=== PATIENT | female | born 1970 ===

== ENCOUNTER 2016-08-27 22:23 | Emergency (ER) | payer SELFPAY ==
[2016-08-27 22:31] VITALS: BP 118/77; PULSE 66; RESP 16; TEMP 97.9; O2SAT 100
--- NOTE | 2016-08-28 00:14 | ED PDOC ---
Upper Extremity Pain/Injury Time Seen by Provider: 08/27/16 23:30 Chief Complaint (Nursing): Finger,Hand,&Wrist Chief Complaint (Provider): Hand pain History Per: Patient Additional Complaint(s): PT. C/O PAIN TO BOTH AHNDS X 1 WEEK. PT. DENIES TRAUMA. Past Medical History Vital Signs: Last Vital Signs Temp 97.9 F 08/27/16 22:27 Pulse 66 08/27/16 22:27 Resp 16 08/27/16 22:27 BP 118/77 08/27/16 22:27 Pulse Ox 100 08/27/16 22:27 - Medical History PMH: HTN - Allergies Allergies/Adverse Reactions: Allergies Allergy/AdvReac Type Severity Reaction Status Date / Time No Known Allergies Allergy Verified 08/28/16 00:13 - ECG O2 Sat by Pulse Oximetry: 100
--- NOTE | 2016-08-28 17:37 | RAD ---
PROCEDURE: Bilateral hands dated 08/28/2016. HISTORY: pain COMPARISON: No prior study available comparison TECHNIQUE: 3 standard views of the right and left hands performed FINDINGS: Current study reveals no evidence of acute displaced fracture nor dislocation. No cortical destructive changes. The osseous structures appear intact. There are no periarticular erosive changes or punched-out lesions Joint spaces preserved without significant osteoarthritis. . Soft tissues appear grossly unremarkable. No radiopaque foreign bodies. IMPRESSION: No acute displaced fracture nor dislocation. No significant osteoarthritis.
== END 2016-08-28 02:04 | disposition home or self-care (01) ==
LOC: H.ER 22:23
DX: M79.631 Pain in right forearm (principal); M79.632 Pain in left forearm

== ENCOUNTER 2016-12-30 18:51 | Emergency (ER) | payer SELFPAY ==
[2016-12-30 18:59] VITALS: BP 143/64; PULSE 97; RESP 20; O2SAT 97
[2016-12-30] MEDS ORDERED: Amoxicillin-Clav 875-125 mg Tab PO STA (19:06)
--- NOTE | 2016-12-30 19:07 | ED PDOC ---
HPI: CCC, URI, Sore Throat Time Seen by Provider: 12/30/16 18:58 Chief Complaint (Nursing): Fever Chief Complaint (Provider): fever, sore throat History Per: Patient Additional Complaint(s): 46-year-old female presents to emergency department with fever and sore throat for 4 days. No associated cough. Motrin has helped the pain. No motrin taken today. Patient is tolerating liquids and solids. Denies recent travel or known sick contacts. Past Medical History Reviewed: Historical Data, Nursing Documentation, Vital Signs Vital Signs: Last Vital Signs Temp 100.6 F H 12/30/16 18:57 Pulse 97 H 12/30/16 18:57 Resp 20 12/30/16 18:57 BP 143/64 12/30/16 18:57 Pulse Ox 97 12/30/16 19:07 - Medical History PMH: HTN - Surgical History Surgical History: (x 1) Other surgeries: colon resection - Family History Family History: States: No Known Family Hx - Living Arrangements Living Arrangements: With Family - Social History Current smoker - smoking cessation education provided: No Alcohol: None Drugs: Denies - Home Medications Home Medications: Ambulatory Orders Medication Instructions Recorded Ibuprofen [Motrin] 600 mg PO Q6 #20 tab 08/28/16 Amoxicillin/Clavulanate [Augmentin 1 tab PO BID #14 tab 12/30/16 875 MG-125 MG] - Allergies Allergies/Adverse Reactions: Allergies Allergy/AdvReac Type Severity Reaction Status Date / Time No Known Allergies Allergy Verified 08/28/16 00:13 Review of Systems ROS Statement: Except As Marked, All Systems Reviewed And Found Negative Constitutional: Positive for: Fever. Negative for: Chills, Weakness ENT: Positive for: Throat Pain Respiratory: Negative for: Cough Gastrointestinal: Negative for: Nausea, Vomiting Neurological: Negative for: Headache, Dizziness Physical Exam - Reviewed Nursing Documentation Reviewed: Yes Vital Signs Reviewed: Yes - Physical Exam Appears: Positive for: Well, Non-toxic, No Acute Distress Skin: Negative for: Rash Eye Exam: Positive for: Normal appearance, EOMI, PERRL ENT: Positive for: TM Is/Are (normal bilaterally), Pharyngeal Erythema, Tonsillar Exudate, Tonsillar Swelling. Negative for: Nasal Congestion Cardiovascular/Chest: Positive for: Regular Rate, Rhythm Respiratory: Positive for: Normal Breath Sounds. Negative for: Wheezing, Respiratory Distress Back: Positive for: Normal Inspection Extremity: Positive for: Normal ROM Neurologic/Psych: Positive for: Alert, Oriented - ECG O2 Sat by Pulse Oximetry: 97 Pulse Ox Interpretation: Normal Medical Decision Making Medical Decision Making: Impression: Pharyngitis and tonsillitis. Plan: PO motrin and tylenol Throat culture Initial dose augmentin Rx given for augmentin. Advised tylenol and motrin for pain and fever, rest, fluids and follow up in 2-3 days with PMD. Disposition - Clinical Impression Clinical Impression: Pharyngitis, Tonsillitis - Patient ED Disposition Is Patient to be Admitted: No Counseled Patient/Family Regarding: Studies Performed, Diagnosis, Need For Followup, Rx Given - Disposition Referrals: [facility] [Outside] Disposition: Routine/Home Disposition Time: 19:11 Condition: STABLE Additional Instructions: Alternate Tylenol every 4 hours and Motrin every 6 hours for fever and pain. Drink plenty of fluids. Take antibiotics as directed. Follow up with clinic in 2 -3 days. Prescriptions: Amoxicillin/Clavulanate [Augmentin 875 MG-125 MG] 1 tab PO BID #14 tab Instructions: Pharyngitis (ED), Tonsillitis (ED) Forms: [employer] (Lebanese) Print Language: SLOVENIAN
[2016-12-30] MEDS ORDERED: Amoxicillin-Clav 875-125 mg Tab PO ONE (19:35)
[2016-12-30 20:15] VITALS: TEMP 98.9
== END 2016-12-30 20:15 | disposition home or self-care (01) ==
LOC: H.ER 18:51
DX: J03.90 Acute tonsillitis, unspecified (principal); J02.9 Acute pharyngitis, unspecified

== ENCOUNTER 2017-11-18 11:42 | Emergency (ER) | payer SELFPAY ==
[2017-11-18 11:48] VITALS: RESP 18
[2017-11-18] MEDS ORDERED: Sodium Chloride 0.9% 1,000 ML IV STA (12:17)
--- NOTE | 2017-11-18 12:19 | ED PDOC ---
HPI: Abdomen Time Seen by Provider: 11/18/17 12:02 Chief Complaint (Nursing): Abdominal Pain History Per: Patient Onset/Duration Of Symptoms: Days (2) Current Symptoms Are (Timing): Still Present Severity: Mild Pain Scale Rating Of: 2 Location Of Pain/Discomfort: Epigastric Quality Of Discomfort: Unable To Describe Associated Symptoms: Nausea. denies: Fever, Vomiting, Diarrhea Additional Complaint(s): Epigastric abd pain assoc with nausea since last night. Denies fever vomiting or diarrhea Past Medical History Vital Signs: Last Vital Signs Temp 98.5 F 11/18/17 11:46 Pulse 69 11/18/17 11:46 Resp 18 11/18/17 11:46 BP 141/69 11/18/17 11:46 Pulse Ox 94 L 11/18/17 12:19 - Medical History PMH: HTN - Surgical History Surgical History: (x 1) - Family History Family History: States: Unknown Family Hx - Home Medications Home Medications: Ambulatory Orders Medication Instructions Recorded Famotidine [Pepcid] 20 mg PO Q12 #20 tab 11/18/17 Ondansetron [Zofran] 4 mg PO Q8H #10 tab 11/18/17 - Allergies Allergies/Adverse Reactions: Allergies Allergy/AdvReac Type Severity Reaction Status Date / Time No Known Allergies Allergy Verified 08/28/16 00:13 Review of Systems Constitutional: Negative for: Fever Gastrointestinal: Positive for: Nausea, Abdominal Pain. Negative for: Vomiting , Diarrhea Genitourinary Female: Negative for: Dysuria, Frequency Musculoskeletal: Negative for: Back Pain Physical Exam - Reviewed Nursing Documentation Reviewed: Yes Vital Signs Reviewed: Yes - Physical Exam Appears: Positive for: Non-toxic, No Acute Distress Head Exam: Positive for: ATRAUMATIC, NORMAL INSPECTION, NORMOCEPHALIC Skin: Positive for: Normal Color, Warm, DRY Eye Exam: Positive for: EOMI, Normal appearance, PERRL ENT: Positive for: Normal ENT Inspection Neck: Positive for: Normal, Painless ROM Cardiovascular/Chest: Positive for: Regular Rate, Rhythm Respiratory: Positive for: CNT, Normal Breath Sounds Gastrointestinal/Abdominal: Positive for: Soft, Tenderness (Mild epigastric) Back: Positive for: Normal Inspection. Negative for: L CVA Tenderness, R CVA Tenderness Extremity: Positive for: Normal ROM Neurologic/Psych: Positive for: Alert, Oriented - Laboratory Results Result Diagrams: 11/18/17 12:50 11/18/17 12:50 - ECG O2 Sat by Pulse Oximetry: 94 Disposition - Clinical Impression Clinical Impression: Gastritis - Patient ED Disposition Is Patient to be Admitted: No Counseled Patient/Family Regarding: Studies Performed, Diagnosis, Need For Followup, Rx Given - Disposition Referrals: [facility] [Outside] Disposition: Routine/Home Disposition Time: 13:46 Condition: FAIR Prescriptions: Famotidine [Pepcid] 20 mg PO Q12 #20 tab Ondansetron [Zofran] 4 mg PO Q8H #10 tab Instructions: Gastritis Forms: [employer] (Yoruba) Print Language: RUSSIAN
[2017-11-18 13:19] LABS: BASO % 0.2 % (0.0-2.0); EOS # 0.1 K/uL (0.0-0.7); EOS % 0.7 % (0.0-4.0); HEMOGLOBIN 13.5 g/dL (12.0-16.0); LYMPH # 2.5 K/uL (1.0-4.3); LYMPH % 32.9 % (20.0-40.0); MEAN CORPUSCULAR HGB CONC 34.3 g/dL (33.0-37.0); MEAN PLATELET VOLUME 7.9 fl (7.2-11.7); MONO # 0.5 K/uL (0.0-0.8); MONO % 6.9 % (0.0-10.0); NEUT # 4.5 K/uL (1.8-7.0); NEUT % 59.3 % (50.0-75.0); RBC 4.36 Mil/uL (3.80-5.20); RED CELL DISTRIBUTION WIDTH 13.3 % (11.5-14.5); WHITE BLOOD COUNT 7.7 K/uL (4.8-10.8)
[2017-11-18 13:20] LABS: MEAN CELL VOLUME 90.4 fl (81.0-99.0)
[2017-11-18 13:29] LABS: ALB/GLOB RATIO 1.2 (1.0-2.1); ALBUMIN 4.3 g/dL (3.5-5.0); ALT/SGPT 29 U/L (9-52); AST/SGOT 30 U/L (14-36); BLOOD UREA NITROGEN 17 mg/dl (7-17); GFR AFRICAN-AMERICAN > 60; GFR NON-AFRICAN AMERICAN > 60
[2017-11-18 14:14] VITALS: BP 135/69; PULSE 74; TEMP 98.3; O2SAT 98
== END 2017-11-18 14:05 | disposition home or self-care (01) ==
LOC: H.ER 11:42
DX: K29.70 Gastritis, unspecified, without bleeding (principal)
CPT/HCPCS: 80053; 85025; 96361; 96374; 96375; 99283; J2405; J7030

== ENCOUNTER 2018-07-30 18:25 | Emergency (ER) | payer SELFPAY ==
[2018-07-30] MEDS ORDERED: Lactated Ringer's 1,000 ML IV STA (19:02)
--- NOTE | 2018-07-30 19:14 | ED PDOC ---
HPI: Female Pain Time Seen by Provider: 07/30/18 18:45 Chief Complaint (Nursing): Abdominal Pain Chief Complaint (Provider): Vaginal Bleeding History Per: Patient History/Exam Limitations: no limitations Onset/Duration Of Symptoms: Days Current Symptoms Are (Timing): Still Present Additional Complaint(s): 48 y/o female with a PMHx of HTN presents to the ED for evaluation of vaginal bleeding and abdominal pain since yesterday after having tripped and fell landing face forward. Patient additionally notes of cramping since last night further stating the bleeding started this morning. Patient reports of using less than one pad. Patient states bleeding seemed to have stopped around noon but cramping abdominal pain in the pelvis has persisted. Patient notes of having cramping on and off for a few months. Patient states that over the last two to three months, she did not have a period and was unsure if she was in pre- menopause or . Patient did not check for . Patient reports of having her IUD removed last year. Otherwise, patient denies nausea, vomiting, diarrhea, constipation, dysuria, flank pain, fever and chills. Patient is additionally complaining of low back pain. PMD: Clinic Past Medical History Reviewed: Historical Data, Nursing Documentation, Vital Signs - Medical History PMH: HTN - Surgical History Surgical History: (x 1) Other surgeries: Benign mass removed from colon - Family History Family History: States: Hypertension - Social History Current smoker - smoking cessation education provided: No Alcohol: None Drugs: Denies - Home Medications Home Medications: Ambulatory Orders Medication Instructions Recorded Famotidine [Pepcid] 20 mg PO Q12 #20 tab 11/18/17 Ondansetron [Zofran] 4 mg PO Q8H #10 tab 11/18/17 Ibuprofen [Motrin Tab] 600 mg PO Q8 PRN #60 tab 07/30/18 - Allergies Allergies/Adverse Reactions: Allergies Allergy/AdvReac Type Severity Reaction Status Date / Time No Known Allergies Allergy Verified 08/28/16 00:13 Review of Systems ROS Statement: Except As Marked, All Systems Reviewed And Found Negative (as per HPI) Constitutional: Negative for: Fever, Chills Gastrointestinal: Positive for: Abdominal Pain. Negative for: Nausea, Vomiting, Diarrhea, Constipation Genitourinary Female: Positive for: Vaginal Bleeding, Pelvic Pain. Negative for: Dysuria Musculoskeletal: Positive for: Back Pain Physical Exam - Reviewed Nursing Documentation Reviewed: Yes Vital Signs Reviewed: Yes - Physical Exam Appears: Positive for: In Acute Distress (mild, painful) Head Exam: Positive for: ATRAUMATIC, NORMOCEPHALIC Skin: Positive for: Warm, Dry. Negative for: Pallor Eye Exam: Positive for: EOMI, PERRL ENT: Negative for: Pharyngeal Erythema, Tonsillar Exudate Neck: Positive for: Painless ROM, Supple Cardiovascular/Chest: Positive for: Regular Rate, Rhythm. Negative for: Murmur Respiratory: Positive for: Normal Breath Sounds. Negative for: Respiratory Distress Gastrointestinal/Abdominal: Positive for: Soft, Tenderness (suprapubic tenderness to palpation). Negative for: Mass, Guarding, Rebound Back: Negative for: L CVA Tenderness, R CVA Tenderness Extremity: Positive for: Normal ROM. Negative for: Deformity Lymphatic: Negative for: Adenopathy Neurological/Psych: Positive for: Awake, Alert. Negative for: Motor/Sensory Deficits - Laboratory Results Result Diagrams: 07/30/18 19:45 07/30/18 19:45 Medical Decision Making Medical Decision Making: Time: 1901 Impression: Vaginal bleeding and pelvic pain Differentials include but not limited to dysmenorrhea, fibroids, dysfunctional uterine bleeding and threatened miscarriage Plan: -- Type and Screen -- Beta-HCG, Quantitative -- CMP -- ED Urine -- ED Urine Dipstick -- CBC with Differentials -- PTT -- Prothrombin time -- Lactated Ringer's IV 1000 mls/hr -- Toradol 15 mg IVP -- IV Insertion -- US Transvaginal Time: 2129 EXAM: US Obstetrical, Complete <14 weeks CLINICAL HISTORY: Pelvic pain, bleeding. TECHNIQUE: Transvaginal and transabdominal imaging of the maternal pelvis and a <14 week gestation with image documentation. COMPARISON: None provided. FINDINGS: ENDOMETRIUM: unremarkable, measuring 6 mm UTERUS: 8.8 x 4.7 by 5.6 cm. multiple uterine fundal fibroids are present. One is present inferiorly and posteriorly, measuring 2.0 x 1.6 by 1.5 cm, second on the superior aspect of the uterine fundus, measuring 2.0 x 2.0 cm, third in the superior uterine fundus, measuring 2.5 x 2.1 cm. CERVIX: Closed. Unremarkable. OVARIES: Unremarkable. No mass. Right ovary measures 2.5 x 2.1 x 2.7 cm, containing a 1.7 x 1.7 x 1.7 cm cyst. Left ovary measures 2.8 x 2.3 x 2.5 cm, containing a 1.5 x 1.2 x 1.6 cm cyst. FREE FLUID: No free fluid. IMPRESSION: 3 uterine fundal fibroids. No other abnormalities are identified Electronically signed on Jul 30, 2018 9:30:52 PM EDT by: Christa Ross M.D., Certified by [facility], Diagnostic Radiology DW pt findings. Pt discharged and instructed to followup with gynecology for further management. No acute findings requiring hospitalization or further ER managment. Diagnosis: vaginal bleeding and fibroids. ____ __ Scribe Attestation: Documented by Mary Fall, acting as a scribe Marcelino Isaac MD. Provider Scribe Attestation: All medical record entries made by the Scribe were at my direction and personally dictated by me. I have reviewed the chart and agree that the record accurately reflects my personal performance of the history, physical exam, medical decision making, and the department course for this patient. I have also personally directed, reviewed, and agree with the discharge instructions and disposition. Disposition - Clinical Impression Clinical Impression: Fibroid, uterine - Disposition [facility] - 07/31/18 Disposition: Routine/Home Disposition Time: 22:00 Condition: STABLE Prescriptions: Ibuprofen [Motrin Tab] 600 mg PO Q8 PRN #60 tab PRN Reason: pain Instructions: Uterine Fibroids (DC) Print Language: ITALIAN
[2018-07-30 20:13] LABS: BASO % 0.5 % (0.0-2.0); EOS # 0.1 K/uL (0.0-0.7); EOS % 1.5 % (0.0-4.0); HEMOGLOBIN 13.8 g/dL (12.0-16.0); LYMPH # 2.8 K/uL (1.0-4.3); LYMPH % 31.9 % (20.0-40.0); MEAN CELL VOLUME 90.9 fl (81.0-99.0); MEAN CORPUSCULAR HEMOGLOBIN 31.1 pg (27.0-31.0); MEAN CORPUSCULAR HGB CONC 34.3 g/dL (33.0-37.0); MEAN PLATELET VOLUME 8.2 fl (7.2-11.7); MONO # 0.5 K/uL (0.0-0.8); MONO % 6.1 % (0.0-10.0); NEUT # 5.2 K/uL (1.8-7.0); NRBC % 0.2 % (0.0-0.0); RBC 4.43 Mil/uL (3.80-5.20); RED CELL DISTRIBUTION WIDTH 13.7 % (11.5-14.5); WHITE BLOOD COUNT 8.7 K/uL (4.8-10.8)
[2018-07-30 20:16] LABS: PROTHROMBIN TIME 11.2 Seconds (9.8-13.1)
[2018-07-30 20:19] LABS: PARTIAL THROMBOPLASTIN TIME 28.5 Seconds (25.6-37.1)
[2018-07-30 20:23] LABS: ALB/GLOB RATIO 1.3 (1.0-2.1); ALBUMIN 4.5 g/dL (3.5-5.0); ALT/SGPT 23 U/L (9-52); AST/SGOT 22 U/L (14-36); BLOOD UREA NITROGEN 24 mg/dl (7-17); CALCIUM 9.5 mg/dL (8.4-10.2); GFR NON-AFRICAN AMERICAN > 60
[2018-07-30 23:26] VITALS: BP 135/75; PULSE 65; RESP 18; TEMP 98.6; O2SAT 99
--- NOTE | 2018-07-31 11:21 | US ---
Date of service: 07/30/2018 HISTORY: Vaginal bleeding, severe pelvic pain. LMP 05/19/2018/irregular cycles. COMPARISON: 02/03/2018. TECHNIQUE: Transvaginal only. Real -time technique with 2D, duplex and color Doppler FINDINGS: UTERUS: Measures 4.7 x 6.7 x 10.0 cm. Heterogeneous echo characteristics. 1. Fundal exophytic sub serosal fibroid 2.1 x 2.5 x 2 cm. 2. Exophytic sub serosal posterior lower uterine segment fibroid 1.6 x 2 cm. 3. Posterior and exophytic serosal fibroid 1.5 x 1.6 cm. ENDOMETRIUM: Measures 5.7 mm in diameter. No ultrasound findings to suggest gestational sac, fluid, debris, mass or polyp or other pathologic process within the endometrium. CERVIX: No cervical abnormality identified.Incidental finding: Nabothian cysts the largest measures less than 1 cm. RIGHT OVARY: Measures 2.1 x 2.5 x 2.7 cm. No solid mass. Normal flow. 1.7 x 1.7 x 1.7 cm cyst LEFT OVARY: Measures 2.3 x 2.5 x 2.8 cm. No solid mass. Normal flow. Simple cyst 1.2 x 1.6 x 1.5 cm. FREE FLUID: No significant free fluid noted. OTHER FINDINGS: None. IMPRESSION: Heterogeneous uterus containing 3 separate subserosal fibroids. Bilateral simple adnexal cysts. Concordant findings (preliminary report) provided by [facility].
== END 2018-07-30 23:24 | disposition home or self-care (01) ==
LOC: H.ER 18:25
DX: D25.9 Leiomyoma of uterus, unspecified (principal); I10 Essential (primary) hypertension
CPT/HCPCS: 76830; 80053; 81025; 84702; 85025; 85610; 85730; 86850; 86900; 96361; 96374; 99284; J1885; J7120